=== PATIENT | male | born 1950 | race Two or more races ===

== ENCOUNTER 2023-04-28 10:04 | Inpatient (IN) | payer OTHER ==
[~2023-04-28] VITALS: Ht 180.3 cm; Wt 90.7 kg
[2023-04-28] MEDS ORDERED: COZAAR50 MG PO (13:04)
== END 2023-05-07 18:44 | disposition home or self-care (01) | DRG 330 ==
LOC: SURG 05-04 10:15 → O/R 05-04 10:18 → SURG 05-04 10:18
PROVIDERS: ADMIT Colon & Rectal Surgery; ATTEND Colon & Rectal Surgery
PROC: 0DBP4ZZ Excision of Rectum, Percutaneous Endoscopic Approach (ICD-10-PCS; 2023-05-04)
PROC: 0TQB4ZZ Repair Bladder, Percutaneous Endoscopic Approach (ICD-10-PCS; 2023-05-04)
PROC: 0DUU47Z Supplement Omentum with Autologous Tissue Substitute, Percutaneous Endoscopic Approach (ICD-10-PCS; 2023-05-04)
PROC: 0DJD8ZZ Inspection of Lower Intestinal Tract, Via Natural or Artificial Opening Endoscopic (ICD-10-PCS; 2023-05-04)
PROC: 0DTN4ZZ Resection of Sigmoid Colon, Percutaneous Endoscopic Approach (ICD-10-PCS; principal; 2023-05-04 17:45)
DX: K57.20 Diverticulitis of large intestine with perforation and abscess without bleeding (principal); N32.1 Vesicointestinal fistula; K66.0 Peritoneal adhesions (postprocedural) (postinfection); R59.0 Localized enlarged lymph nodes